=== PATIENT | female | born 1990 | race Caucasian/White ===

== ENCOUNTER → 2016-10-30 | Outpatient (CLI) | payer OTHER ==
--- NOTE | 2016-10-30 11:50 | RAD ---
EXAM: Left breast ultrasound. HISTORY: Palpable focus deep to the left nipple. Actively breast-feeding. COMPARISON: None. FINDINGS: Sonographic evaluation of the left subareolar breast was performed to side of palpable concern. There are prominent ducts deep to the left nipple consistent with active right patient. No mass or fluid collection is identified. No inflammatory changes seen. IMPRESSION: 1. No sonographic correlate for a palpable focus. Recommend ongoing clinical follow-up of palpable findings with sonographic reassessment as necessary. 2. BI-RADS Category 1: Negative.
== END | disposition home or self-care (01) ==
LOC: KCIC US 10:24
PROVIDERS: ATTEND Obstetrics & Gynecology
DX: N63 Unspecified lump in breast (principal)
CPT/HCPCS: 76641